=== PATIENT | male | born 1950 | race Hispanic/Latino ===

== ENCOUNTER 2018-07-31 22:07 | Inpatient (IN) | payer MEDICARE, OTHER ==
--- NOTE | 2018-07-31 22:30 | ED PDOC ---
Arrival/HPI - General Time Seen by Provider: 07/31/18 22:16 Historian: Patient - History of Present Illness Narrative History of Present Illness (Text): 07/31/18 22:26 68 year old male, whose past medical history includes hypertension, DVT, and PE, presents to the emergency department with dizziness, since 30 minutes prior. 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 Patient states he began feeling lightheadedness, with some chest pain and palpitations. Patient informs of an aggravating incident that happened earlier in the day, and thinks it may be associated. Patient denies any fevers, chills, shortness of breath, abdominal pain, nausea, vomiting, diarrhea, back pain, neck pain, urinary/bowel changes, or any other complaint. 07/31/18 23:56 Time/Duration: 1/2 hour Symptom Course: Unchanged Activities at Onset: Light Past Medical History - Provider Review Nursing Documentation Reviewed: Yes - Cardiac Hx Pacemaker: No - Pulmonary Hx Respiratory Disorders: No Hx Asthma: No Hx Bronchitis: No Hx Chronic Obstructive Pulmonary Disease (COPD): No Hx Emphysema: No Hx Lung Cancer: No Hx Pneumonia: No Hx Pulmonary Embolism: No Hx Respiratory Aspiration: No Hx Respiratory Tract Infection: No Hx Sleep Apnea: No Hx Tuberculosis: No - Neurological Hx Paralysis: No - Hematological/Oncological Hx Blood Transfusions: No Hx Blood Transfusion Reaction: No - Integumentary Hx Cellulitis: No - Musculoskeletal/Rheumatological Hx Musculoskeletal Disorders: Yes (BACK PROBLEMS) - Gastrointestinal Hx Gastrointestinal Disorders: No Hx Bowel Surgery: No Hx Colitis: No Hx Constipation: No Hx Crohn's Disease: No Hx Diarrhea: No Hx Diverticulitis: No Hx Esophageal Varices: No Hx Fatty Liver Disease: No Hx Gall Bladder Disease: No Hx Gastritis: No Hx Gastroesophageal Reflux: No Hx Gastrointestinal Ulcer: No Hx Hemorrhoids: No Hx Ileostomy: No Hx Irritable Bowel: No Hx Liver Failure: No Hx Nausea: No Hx Pancreatitis: No Hx Vomiting: No - Genitourinary/Gynecological Hx Cervical Cancer: No Hx Ovarian Cancer: No Hx Prostate Cancer: No Hx Reproductive Disorders: No Hx Sexually Transmitted Diseases: No Hx Uterine Cancer: No - Psychiatric Hx Emotional Abuse: No Hx Physical Abuse: No Hx Substance Use: No - Surgical History Hx Orthopedic Surgery: Yes (muscle repair to left knee) - Anesthesia Hx Anesthesia Reactions: No Hx Malignant Hyperthermia: No - Suicidal Assessment Feels Threatened In Home Enviroment: No Family/Social History - Physician Review Nursing Documentation Reviewed: Yes Family/Social History: No Known Family HX Smoking Status: quit 02/04 Hx Alcohol Use: Yes (SOCIAL) Hx Substance Use: No Hx Substance Use Treatment: No Allergies/Home Meds Allergies/Adverse Reactions: Allergies No Known Allergies Allergy (Verified 02/05/12 12:10) Home Medications: Home Meds Medication Instructions Recorded Confirmed Ibuprofen [Ibu] 600 mg PO PRN PRN 02/06/12 07/31/18 Atorvastatin [Lipitor] 40 mg PO DAILY 07/31/18 07/31/18 Hydrochlorothiazide [Microzide] 25 mg PO DAILY 07/31/18 07/31/18 Lisinopril [Zestril] 10 mg PO DAILY 07/31/18 07/31/18 Review of Systems - Physician Review All systems were reviewed & negative as marked: Yes - Review of Systems Constitutional: absent: Fevers, Night Sweats Respiratory: absent: SOB, Cough Cardiovascular: Chest Pain Gastrointestinal: absent: Abdominal Pain, Diarrhea, Nausea, Vomiting Genitourinary Male: absent: Urinary Output Changes Musculoskeletal: absent: Back Pain, Neck Pain Neurological: Headache, Dizziness Physical Exam Vital Signs Reviewed: Yes Vital Signs Temp Pulse Resp BP Pulse Ox 07/31/18 22:16 97.6 F 156 H 18 125/61 96 Temperature: Afebrile Blood Pressure: Normal Pulse: Tachycardic Respiratory Rate: Normal Appearance: Positive for: Well-Appearing, Non-Toxic, Comfortable Pain Distress: None Mental Status: Positive for: Alert and Oriented X 3 - Systems Exam Head: Present: Atraumatic, Normocephalic Pupils: Present: PERRL Extroacular Muscles: Present: EOMI Conjunctiva: Present: Normal Mouth: Present: Moist Mucous Membranes Neck: Present: Normal Range of Motion Respiratory/Chest: Present: Clear to Auscultation, Good Air Exchange. No: Respiratory Distress, Accessory Muscle Use Cardiovascular: Present: Irregular Rhythm (Irregularly irregular), Tachycardic. No: Murmurs Abdomen: No: Tenderness, Distention, Peritoneal Signs Back: Present: Normal Inspection Upper Extremity: Present: Normal Inspection. No: Cyanosis, Edema Lower Extremity: Present: Normal Inspection. No: Edema Neurological: Present: Speech Normal Skin: Present: Warm, Dry, Normal Color. No: Rashes Psychiatric: Present: Alert, Oriented x 3, Normal Insight, Normal Concentration Medical Decision Making ED Course and Treatment: 07/31/18 22:34 Impression: 68 year old male presents with dizziness and palpitations new onset afib Plan: -- EKG -- Labs -- Chest X-ray -- Cardizem -- Urinalysis -- Reassess and disposition Prior Visits: Notes and results from previous visits were reviewed. Progress Notes: EKG reviewed by me, shows: Atrial fibrillation @155 bpm Non-specific STT wave changes No previous comparison 07/31/18 23:14 Repeat EKG reviewed by me, shows: Atrial fibrillation @ 99bpm 07/31/18 23:56 case discusse elaine campos request dr clark consult. hr decreased. cardizem po dosed lovenox dosed. 07/31/18 23:57 cxr neg as read by me. - RAD Interpretation Radiology Orders: 07/31/18 22:25 CHEST PORTABLE [RAD] Stat - Scribe Statement The provider has reviewed the documentation as recorded by the Angela Callahan Provider Scribe Attestation: All medical record entries made by the Scribe were at my direction and personally dictated by me. I have reviewed the chart and agree that the record accurately reflects my personal performance of the history, physical exam, medical decision making, and the department course for this patient. I have also personally directed, reviewed, and agree with the discharge instructions and disposition. Disposition/Present on Arrival - Present on Arrival Any Indicators Present on Arrival: No History of DVT/PE: Yes History of Uncontrolled Diabetes: No Urinary Catheter: No History Surgical Site Infection Following: None - Disposition Have Diagnosis and Disposition been Completed?: Yes Diagnosis: Atrial fibrillation with RVR Disposition: HOSPITALIZED Disposition Time: 23:00 Condition: STABLE
[2018-07-31 23:01] LABS: PARTIAL THROMBOPLASTIN TIME 33.4 Seconds (25.1-36.5)
[2018-07-31 23:03] LABS: BASO # 0.03 K/mm3 (0.0-2.0); BASO % 0.3 % (0.0-3.0); EOS # 0.1 (0.0-0.7); EOS % 0.7 % (1.5-5.0); GRAN # 7.73 (1.4-6.5); GRAN % 72.1 % (50.0-68.0); HEMOGLOBIN 14.2 g/dL (14.0-18.0); LYMPH # 1.7 (1.2-3.4); LYMPH % 15.7 % (22.0-35.0); MEAN CELL VOLUME 84.3 fl (80.0-105.0); MEAN CORPUSCULAR HEMOGLOBIN 28.9 pg (25.0-35.0); MEAN CORPUSCULAR HGB CONC 34.3 g/dl (31.0-37.0); MONO # 1.2 (0.1-0.6); MONO % 11.2 % (1.0-6.0); RBC 4.91 10^6/uL (3.5-6.1); RED CELL DISTRIBUTION WIDTH 13.3 % (11.5-14.5); WHITE BLOOD COUNT 10.7 10^3/uL (4.5-11.0)
[2018-07-31 23:07] LABS: ALB/GLOB RATIO 1.4 (1.1-1.8); ALBUMIN 4.6 g/dL (3.0-4.8); ALT/SGPT 49 U/L (7-56); AST/SGOT 45 U/L (17-59); BLOOD UREA NITROGEN 20 mg/dL (7-21); CALCIUM 9.7 mg/dL (8.4-10.5); GFR NON-AFRICAN AMERICAN 55
[2018-07-31 23:10] LABS: INR 1.15; PROTHROMBIN TIME 13.1 SECONDS (9.4-12.5)
[2018-07-31] MEDS ORDERED: Enoxaparin 150 mg Syringe SC STA (23:10)
[2018-07-31 23:19] LABS: TROPONIN I 0.02 ng/mL
[2018-07-31 23:26] LABS: CK MB% 1.8 % (2.5-3.0); CK-MB 6.9 ng/mL (0.0-3.6)
[2018-08-01] MEDS ORDERED: diltiaZEM IVPB 100mg in NS 100 ML IV PRN (01:13)
--- NOTE | 2018-08-01 02:12 | CP.PCM.CON ---
<Marvin Mayen - Last Filed: 08/01/18 02:16> History of Present Illness - History of Present Illness History of Present Illness: 68 year old male, whose past medical history includes hypertension, DVT, and PE, presented to the emergency department with palpitations and lightheadedness which began an hour before arrival. PAtient found to be in afib. 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 Patient states he began feeling lightheadedness, with some chest pain and palpitations. Patient admits to smoking marijuana prior to the onset of symptoms. Patient denies any syncope. In addition, patient denies any fevers, chills, shortness of breath, abdominal pain, nausea, vomiting, diarrhea, back pain, neck pain, urinary/bowel changes, or any other complaints. PMH: HLD, HTN, scoliosis PSH: leg muscle repair on left leg 2011 Allergies: NKDA Social: admits to marijuana use occasionally, couple of beers on weekends, denies tobacco use Family Hx: Brother, 50 had a stroke Meds: As per [facility] PMD: Dr. Scott Review of Systems - Constitutional Constitutional: absent: Chills, Fatigue, Fever - Cardiovascular Cardiovascular: Irregular Heart Rhythm, Palpitations. absent: Chest Pain, Dyspnea - Respiratory Respiratory: absent: Cough, Dyspnea - Gastrointestinal Gastrointestinal: absent: Abdominal Pain, Nausea, Vomiting - Neurological Neurological: absent: Weakness - Endocrine Endocrine: absent: Excessive Sweating Past Patient History - Past Social History Smoking Status: quit 02/04 - CARDIAC Hx Pacemaker: No - PULMONARY Hx Respiratory Disorders: No Hx Asthma: No Hx Bronchitis: No Hx Chronic Obstructive Pulmonary Disease (COPD): No Hx Emphysema: No Hx Lung Cancer: No Hx Pneumonia: No Hx Pulmonary Embolism: No Hx Respiratory Aspiration: No Hx Respiratory Tract Infection: No Hx Sleep Apnea: No Hx Tuberculosis: No - NEUROLOGICAL Hx Paralysis: No - HEMATOLOGICAL/ONCOLOGICAL Hx Blood Transfusions: No Hx Blood Transfusion Reaction: No - INTEGUMENTARY Hx Cellulitis: No - MUSCULOSKELETAL/RHEUMATOLOGICAL Hx Musculoskeletal Disorders: Yes (BACK PROBLEMS) - GASTROINTESTINAL Hx Gastrointestinal Disorders: No Hx Bowel Surgery: No Hx Colitis: No Hx Constipation: No Hx Crohn's Disease: No Hx Diarrhea: No Hx Diverticulitis: No Hx Esophageal Varices: No Hx Fatty Liver Disease: No Hx Gall Bladder Disease: No Hx Gastritis: No Hx Gastroesophageal Reflux: No Hx Hemorrhoids: No Hx Ileostomy: No Hx Irritable Bowel: No Hx Liver Failure: No Hx Nausea: No Hx Pancreatitis: No Hx Vomiting: No - GENITOURINARY/GYNECOLOGICAL Hx Prostate Cancer: No Hx Reproductive Disorders: No Hx Sexually Transmitted Disorders: No - PSYCHIATRIC Hx Emotional Abuse: No Hx Physical Abuse: No Hx Substance Use: No - SURGICAL HISTORY Hx Orthopedic Surgery: Yes (muscle repair to left knee) - ANESTHESIA Hx Anesthesia Reactions: No Hx Malignant Hyperthermia: No Meds Allergies/Adverse Reactions: Allergies Allergy/AdvReac Type Severity Reaction Status Date / Time No Known Allergies Allergy Verified 02/05/12 12:10 - Medications Medications: Current Medications Atorvastatin Calcium (Lipitor) 40 mg PO DAILY WILFREDO Hydrochlorothiazide (Hydrodiuril) 25 mg PO DAILY WILFREDO diltiaZEM IVPB 100mg in NS (Cardizem 100mg In Ns) 100 mls @ 5 mls/hr IV .Q20H PRN; Protocol PRN Reason: TITRATE PER MD ORDER Last Admin: 08/01/18 01:30 Dose: 5 mg/hr, 5 mls/hr Lisinopril (Zestril) 10 mg PO DAILY WILFREDO Physical Exam - Constitutional Appears: Well, Non-toxic, No Acute Distress - Head Exam Head Exam: ATRAUMATIC, NORMAL INSPECTION, NORMOCEPHALIC - Eye Exam Eye Exam: EOMI, Normal appearance, PERRL Pupil Exam: NORMAL ACCOMODATION - ENT Exam ENT Exam: Mucous Membranes Moist, Normal Exam - Respiratory Exam Respiratory Exam: NORMAL BREATHING PATTERN - Cardiovascular Exam Cardiovascular Exam: Tachycardia, Irregular Rhythm Additional comments: afib - GI/Abdominal Exam GI & Abdominal Exam: Normal Bowel Sounds, Soft. absent: Tenderness - Extremities Exam Extremities exam: Positive for: normal inspection, pedal pulses present. Negative for: calf tenderness, pedal edema, tenderness - Neurological Exam Neurological exam: Alert, CN II-XII Intact, Oriented x3 Results - Vital Signs Recent Vital Signs: Last Vital Signs Temp 97.6 F 07/31/18 22:16 Pulse 108 H 08/01/18 00:14 Resp 17 08/01/18 00:14 BP 114/70 08/01/18 00:14 Pulse Ox 98 08/01/18 00:14 - Labs Result Diagrams: 07/31/18 22:41 07/31/18 22:41 Labs: Laboratory Results - last 24 hr 07/31/18 07/31/18 07/31/18 22:41 22:41 22:41 WBC 10.7 RBC 4.91 Hgb 14.2 Hct 41.4 L MCV 84.3 MCH 28.9 MCHC 34.3 RDW 13.3 Plt Count 250 MPV 10.0 Gran % 72.1 H Lymph % (Auto) 15.7 L Graham % (Auto) 11.2 H Eos % (Auto) 0.7 L Baso % (Auto) 0.3 Gran # 7.73 H Lymph # (Auto) 1.7 Graham # (Auto) 1.2 H Eos # (Auto) 0.1 Baso # (Auto) 0.03 PT 13.1 H INR 1.15 APTT 33.4 Sodium 135 Potassium 3.7 Chloride 99 Carbon Dioxide 25 Anion Gap 15 BUN 20 Creatinine 1.3 Est GFR ( Amer) > 60 Est GFR (Non-Af Amer) 55 Random Glucose 190 H Calcium 9.7 Magnesium 2.0 Total Bilirubin 0.8 AST 45 ALT 49 Alkaline Phosphatase 79 Lactate Dehydrogenase 548 Total Creatine Kinase 387 H CK-MB (CK-2) 6.9 H CK-MB (CK-2) % 1.8 L Troponin I 0.02 Total Protein 8.0 Albumin 4.6 Globulin 3.4 Albumin/Globulin Ratio 1.4 Assessment & Plan - Assessment and Plan (Free Text) Assessment: 68 year old male, whose past medical history includes hypertension, DVT, and PE, presented to the emergency department with palpitations and lightheadedness which began an hour before arrival. PAtient found to be in afib. Plan: Neuro -AAAOx3 -continue to monitor status -xanax prn for anxiety CV -EKG initially showed Afib with rate in the 150s -Patient given therapeutic lovenox -initial trop .02, will follow serial x2 -cardizem PO given in ED followed by bolus -cardizem drip -HR now in the 120s -monitor in telemetry -blood pressure stable -continue home antihypertensives -cardio consulted, Narendra, follow recs -statin -urine drug screen GI -HHD -protonix Endo -TSH/T4 pending -maintain euglycemia Respiratory -patient saturating well on room air -maintain oxygen saturation >92% Patient is comfortable, HR in 120s controlled by Cardizem, initial trop negative. Will monitor patient on telemetry, not a candidate for ICU currently. <Anatoliy Kelly - Last Filed: 08/01/18 03:27> Meds - Medications Medications: Current Medications Alprazolam (Xanax) 0.25 mg PO Q6H PRN; Protocol PRN Reason: Anxiety Stop: 08/08/18 02:16 Atorvastatin Calcium (Lipitor) 40 mg PO DAILY WILFREDO Hydrochlorothiazide (Hydrodiuril) 25 mg PO DAILY WILFREDO diltiaZEM IVPB 100mg in NS (Cardizem 100mg In Ns) 100 mls @ 5 mls/hr IV .Q20H PRN; Protocol PRN Reason: TITRATE PER MD ORDER Last Admin: 08/01/18 01:30 Dose: 5 mg/hr, 5 mls/hr Sodium Chloride (Sodium Chloride 0.9%) 1,000 mls @ 100 mls/hr IV .Q10H WILFREDO Stop: 08/01/18 12:59 Lisinopril (Zestril) 10 mg PO DAILY [facility] Results - Vital Signs Recent Vital Signs: Last Vital Signs Temp 97.6 F 07/31/18 22:16 Pulse 118 H 08/01/18 02:11 Resp 17 08/01/18 00:14 BP 112/67 08/01/18 02:11 Pulse Ox 98 08/01/18 00:14 - Labs Result Diagrams: 07/31/18 22:41 07/31/18 22:41 Labs: Laboratory Results - last 24 hr 07/31/18 07/31/18 07/31/18 22:41 22:41 22:41 WBC 10.7 RBC 4.91 Hgb 14.2 Hct 41.4 L MCV 84.3 MCH 28.9 MCHC 34.3 RDW 13.3 Plt Count 250 MPV 10.0 Gran % 72.1 H Lymph % (Auto) 15.7 L Graham % (Auto) 11.2 H Eos % (Auto) 0.7 L Baso % (Auto) 0.3 Gran # 7.73 H Lymph # (Auto) 1.7 Graham # (Auto) 1.2 H Eos # (Auto) 0.1 Baso # (Auto) 0.03 PT 13.1 H INR 1.15 APTT 33.4 Sodium 135 Potassium 3.7 Chloride 99 Carbon Dioxide 25 Anion Gap 15 BUN 20 Creatinine 1.3 Est GFR ( Amer) > 60 Est GFR (Non-Af Amer) 55 Random Glucose 190 H Calcium 9.7 Magnesium 2.0 Total Bilirubin 0.8 AST 45 ALT 49 Alkaline Phosphatase 79 Lactate Dehydrogenase 548 Total Creatine Kinase 387 H CK-MB (CK-2) 6.9 H CK-MB (CK-2) % 1.8 L Troponin I 0.02 Total Protein 8.0 Albumin 4.6 Globulin 3.4 Albumin/Globulin Ratio 1.4 Triglycerides Cholesterol LDL Cholesterol Direct HDL Cholesterol Thyroxine (T4) 07/31/18 07/31/18 22:41 22:41 WBC RBC Hgb Hct MCV MCH MCHC RDW Plt Count MPV Gran % Lymph % (Auto) Graham % (Auto) Eos % (Auto) Baso % (Auto) Gran # Lymph # (Auto) Graham # (Auto) Eos # (Auto) Baso # (Auto) PT INR APTT Sodium Potassium Chloride Carbon Dioxide Anion Gap BUN Creatinine Est GFR ( Amer) Est GFR (Non-Af Amer) Random Glucose Calcium Magnesium Total Bilirubin AST ALT Alkaline Phosphatase Lactate Dehydrogenase Total Creatine Kinase CK-MB (CK-2) CK-MB (CK-2) % Troponin I Total Protein Albumin Globulin Albumin/Globulin Ratio Triglycerides 105 Cholesterol 165 LDL Cholesterol Direct 103 HDL Cholesterol 44 Thyroxine (T4) 9.3 Attending/Attestation - Attestation I have personally seen and examined this patient.: Yes I have fully participated in the care of the patient.: Yes I have reviewed all pertinent clinical information: Yes Notes (Text): 08/01/18 03:26 Patient was seen when he was in bed # 8 in the ER. Agree with consult note.
[2018-08-01 02:57] LABS: HDL CHOLESTEROL 44 mg/dL (29-60)
[2018-08-01] MEDS ORDERED: Sodium Chloride 0.9% 1,000 ML IV SCH (03:00)
[2018-08-01 03:09] LABS: LDL CHOLESTEROL 103 mg/dL (0-129)
[2018-08-01 03:15] LABS: T4 9.3 ug/dL (5.5-11.0)
[2018-08-01] MEDS ORDERED: Iohexol 350 MG/100 ML VIAL ONE (04:21)
[2018-08-01 07:24] LABS: BASO # 0.03 K/mm3 (0.0-2.0); BASO % 0.3 % (0.0-3.0); EOS # 0.1 (0.0-0.7); EOS % 1.3 % (1.5-5.0); GRAN # 5.09 (1.4-6.5); GRAN % 58.6 % (50.0-68.0); LYMPH # 2.6 (1.2-3.4); LYMPH % 29.5 % (22.0-35.0); MEAN CELL VOLUME 84.5 fl (80.0-105.0); MEAN CORPUSCULAR HEMOGLOBIN 28.9 pg (25.0-35.0); MEAN CORPUSCULAR HGB CONC 34.2 g/dl (31.0-37.0); MEAN PLATELET VOLUME 10.1 fl (7.0-11.0); MONO # 0.9 (0.1-0.6); MONO % 10.3 % (1.0-6.0); RBC 4.84 10^6/uL (3.5-6.1); RED CELL DISTRIBUTION WIDTH 13.3 % (11.5-14.5); WHITE BLOOD COUNT 8.7 10^3/uL (4.5-11.0)
[2018-08-01 07:42] LABS: ALB/GLOB RATIO 1.3 (1.1-1.8); ALBUMIN 4.2 g/dL (3.0-4.8); ALT/SGPT 45 U/L (7-56); AST/SGOT 37 U/L (17-59); BLOOD UREA NITROGEN 19 mg/dL (7-21); CALCIUM 9.3 mg/dL (8.4-10.5); GFR NON-AFRICAN AMERICAN > 60
[2018-08-01 07:45] LABS: TROPONIN I 0.02 ng/mL
--- NOTE | 2018-08-01 08:53 | CT ---
Date of service: 08/01/2018 PROCEDURE: CT HEAD WITH AND WITHOUT CONTRAST HISTORY: Dizziness for half hour. COMPARISON: None available. TECHNIQUE: Axial computed tomography images were obtained through the head/brain with and without intravenous contrast enhancement. Contrast dose: Radiation dose: Total exam DLP = 2534.93 mGy-cm. This CT exam was performed using one or more of the following dose reduction techniques: Automated exposure control, adjustment of the mA and/or kV according to patient size, and/or use of iterative reconstruction technique. FINDINGS: HEMORRHAGE: No intracranial hemorrhage. BRAIN: No mass, mass effect or edema. No abnormal intracranial enhancement. No atrophy or chronic microvascular ischemic changes. VENTRICLES: Unremarkable. No hydrocephalus. CALVARIUM: Unremarkable. SINUSES: Unremarkable as visualized. No significant inflammatory changes. MASTOID AIR CELLS: Unremarkable as visualized. No mastoid effusion. OTHER FINDINGS: None. IMPRESSION: Normal pre and post contrast enhanced CT of the head.
--- NOTE | 2018-08-01 09:03 | RAD ---
Date of service: 07/31/2018 HISTORY: palpitations COMPARISON: No prior. FINDINGS: LUNGS: No active pulmonary disease. PLEURA: No significant pleural effusion identified, no pneumothorax apparent. CARDIOVASCULAR: No aortic atherosclerotic calcification present. Normal cardiac size. No pulmonary vascular congestion. OSSEOUS STRUCTURES: No significant abnormalities. VISUALIZED UPPER ABDOMEN: Normal. OTHER FINDINGS: None. IMPRESSION: No active disease.
--- NOTE | 2018-08-01 12:43 | CON ---
DATE: 08/01/2018 SERVICE: Cardiology. REASON FOR CONSULTATION: Atrial fibrillation, rapid ventricular rate, new onset. HISTORY OF PRESENT ILLNESS: This is a 68-year-old male with past medical history significant for hypertension, hyperlipidemia, is a [place] who plays [employer], was in a lot of stress yesterday because some transaction from his bank account and he has to go back and forth multiple times to the bank and was in a lot of stress. 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 So, the patient was in rehearsal, so stopped this, and went home, and later on the friend dropped off to the ER. Though he denies any chest pain, but feels a funny sensation in the chest and found to be in atrial fibrillation with rapid ventricular rate. The patient started on IV Cardizem and now rate is 100, feels much better. Denies any chest pain, denies any shortness of breath, denies any palpitation, denies any prior episode of this condition. PAST MEDICAL HISTORY: Significant for hypertension, obesity, hyperlipidemia. PAST SURGICAL HISTORY: Significant for left knee surgery in 2011 where the ligament was torn. SOCIAL HISTORY: Quit smoking many years ago. Denies any history of alcohol abuse, but says that he drinks four cans of beer every Saturday when he hangs with a friend. FAMILY HISTORY: Noncontributory. CURRENT MEDICATIONS: The patient is taking lisinopril 10 mg daily, hydrochlorothiazide 25 mg daily, atorvastatin 40 mg daily, ibuprofen as needed. ALLERGIES: NO KNOWN DRUG ALLERGY. PHYSICAL EXAMINATION VITAL SIGNS: Height of the patient 5 feet 8 inches, weight of the patient 220 pounds, body mass index 33.5 kg/m2. Rest of the vitals; temperature afebrile, heart rate 96, blood pressure 142/52. HEENT: PERRLA intact. NECK: Supple. No carotid bruit or thyromegaly. CHEST: Clear to auscultation. HEART: S1, S2, regular. ABDOMEN: Soft. EXTREMITIES: Clubbing and cyanosis, negative. DIAGNOSTIC DATA: EKG shows atrial fibrillation, atrial flutter when he came in with a heart rate of 145, now the patient is in atrial fibrillation, heart rate of 112. LABORATORY DATA: Blood workup WBC 8.7, hemoglobin 14, hematocrit 40.9, platelet count 249. Chemistry shows sodium 130, potassium 3.8, chloride 101, carbon dioxide 25, anion gap of 14, BUN of 19, creatinine 1.1, random sugar of 176. Troponins remains flat, 0.02. TSH 1.93. Triglyceride 105, cholesterol 165, LDL 106, HDL 44. SGPT, SGOT within the normal limit. AST 37, ALT 45. IMPRESSION: A 68-year-old morbidly obese male with past medical history of hypertension, admitted with new onset of atrial fibrillation, currently on Cardizem. RECOMMENDATIONS: We will continue Lovenox. We will mold changer to Eliquis 5 by mouth two times a day, start Cardizem and will start amiodarone as well. Get echo to assess LV function. Heart rate is controlled. Depending upon the echo, further recommendation versus JESSICA as outpatient with a stress test. JESSICA cardioversion as outpatient considered. Discussed with the patient. We will hold lisinopril, so we can push Cardizem for control of the heart rate and therefore the blood pressure. We will follow with you. Thank you Dr. Gusman for providing us the opportunity in taking care of the patient, Maco Larsen. Sofia Mackey MD
--- NOTE | 2018-08-01 13:43 | US ---
PROCEDURE: Bilateral carotid artery duplex ultrasound HISTORY: Carotid stenosis PHYSICIAN(S): Benito Scott MD. TECHNIQUE: Duplex sonography and color-flow Doppler were used to evaluate the carotid bifurcations and limited segments of the vertebral arteries bilaterally. FINDINGS: There is mild to moderate focal smooth heterogeneous plaque noted at the carotid bifurcations bilaterally. The peak systolic velocity in the proximal right internal carotid artery is 69 cm/sec. This corresponds to a 20 to 39% proximal right ICA stenosis. Normal systolic velocities are noted in the proximal right external carotid artery. There is antegrade flow in the right vertebral artery. The peak systolic velocity in the proximal left internal carotid artery is 59 cm/sec. This corresponds to a 20 to 39% proximal left ICA stenosis. Normal systolic velocities are noted in the proximal left external carotid artery. There is antegrade flow in the left vertebral artery. IMPRESSION: 1. Bilateral 20-39% proximal ICA stenoses. 2. Antegrade flow in both vertebral arteries.
--- NOTE | 2018-08-01 16:21 | CARD ---
APPROVED REPORT Date of service: 07/31/2018 EKG Measurement Heart [id number] <Conclusion> Atrial fibrillation Nonspecific ST abnormality, probably digitalis effect Abnormal ECG
--- NOTE | 2018-08-01 16:21 | CARD ---
APPROVED REPORT Date of service: 07/31/2018 EKG Measurement Heart [id number] <Conclusion> Atrial fibrillation with rapid ventricular response ST & T wave abnormality, consider lateral ischemia or digitalis effect Abnormal ECG
[2018-08-01 16:48] VITALS: BMI 38.0
[2018-08-01] MEDS ORDERED: Enoxaparin 100 mg Syringe SC SCH ×2 (18:00→20:18)
--- NOTE | 2018-08-02 00:01 | HP ---
DATE OF EXAM: 08/01/2018 HISTORY OF PRESENT ILLNESS: Mr. Larsen is a 68-year-old male presented to the ED with lightheadedness and dizziness 30 minutes prior to arrival to the ED. He was found to have new onset atrial fibrillation with rapid heart rate, started on Cardizem drip. He has a history of DVT in left lower extremity and pulmonary embolism in 2011. CT chest reviewed from 2012. He had bilateral pulmonary embolism. He stated that he had been smoking marijuana yesterday. Smoked few times. He occasionally smokes for past many years. He also combines marijuana with alcohol occasionally. 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 PAST MEDICAL HISTORY: Pulmonary embolism, backaches. PAST SURGICAL HISTORY: Left knee muscle repair. PERSONAL HISTORY: He smokes marijuana regularly. Drinks few beers a day. FAMILY HISTORY: Noncontributory. SOCIAL HISTORY: Lives at home. ALLERGIES NO KNOWN DRUG ALLERGIES. REVIEW OF SYSTEMS: As per HPI. Rest of 12-point review of systems reviewed negative. PHYSICAL EXAMINATION GENERAL: Comfortable in bed, in no acute distress. VITAL SIGNS: Temperature 97.6, heart rate 156 per minute on admission, current heart rate is 98 per minute,respiratory rate 18 per minute, blood pressure 125/60, heart rate is 96 per minute. HEENT: No pallor. NECK: No lymphadenopathy. CARDIOVASCULAR: Irregularly irregular heart rate. No murmur or gallop. LUNGS: Clear to auscultation. No added sounds. EXTREMITIES: Lower extremities, no edema. SKIN: No petechia. No rash. LABORATORY DATA: White count 8.7, hemoglobin 14, hematocrit 40.9, platelet count 249, creatinine 1.8, sodium 136, potassium 3.8 and total bilirubin 0.8. TSH 1.3. HOME MEDICATIONS: Lipitor 40 mg daily, hydrochlorothiazide 25 mg daily, lisinopril 10 mg daily. ASSESSMENT: 1. New onset atrial fibrillation with rapid heart rate. 2. Hypercoagulable state. 3. History of bilateral pulmonary embolism, history of deep venous thrombosis left lower extremity in 2011. 4. History of marijuana use. PLAN: He will be admitted to tele monitoring. Cardiology consultation Dr. Mackey requested, received 1 dose of Lovenox 125 mg in the ED. We will continue Lovenox 100 mg p.o. b.i.d. After 24 hours, we will start Coumadin 10 mg daily. Started on Cardizem drip in the ED, continue that, Xanax 0.25 every 6 hours. p.r.n. for anxiety. Cardiology consult Dr. Mackey appreciated. Amiodarone started 400 mg p.o. t.i.d. Renal functions are within normal limits. We will do the CT angio tomorrow to rule out recurrent pulmonary embolism. Labs ordered for tomorrow. Vane Gusman MD
[2018-08-02 08:35] LABS: BASO # 0.04 K/mm3 (0.0-2.0); BASO % 0.5 % (0.0-3.0); EOS # 0.2 (0.0-0.7); EOS % 2.1 % (1.5-5.0); GRAN # 4.37 (1.4-6.5); GRAN % 58.6 % (50.0-68.0); HEMOGLOBIN 13.4 g/dL (14.0-18.0); LYMPH # 2.1 (1.2-3.4); LYMPH % 27.7 % (22.0-35.0); MEAN CELL VOLUME 85.3 fl (80.0-105.0); MEAN PLATELET VOLUME 10.7 fl (7.0-11.0); MONO # 0.8 (0.1-0.6); MONO % 11.1 % (1.0-6.0); RBC 4.62 10^6/uL (3.5-6.1); RED CELL DISTRIBUTION WIDTH 13.3 % (11.5-14.5); WHITE BLOOD COUNT 7.5 10^3/uL (4.5-11.0)
[2018-08-02 09:18] LABS: ALB/GLOB RATIO 1.2 (1.1-1.8); ALT/SGPT 41 U/L (7-56); AST/SGOT 41 U/L (17-59); BLOOD UREA NITROGEN 15 mg/dL (7-21); CALCIUM 9.1 mg/dL (8.4-10.5); GFR NON-AFRICAN AMERICAN > 60
--- NOTE | 2018-08-02 09:46 | CARD ---
APPROVED REPORT Date of service: 08/02/2018 EKG Measurement Heart [id number] <Conclusion> Sinus rhythm with 1st degree AV block Low voltage QRS Nonspecific ST abnormality Abnormal ECG
[2018-08-02] MEDS ORDERED: Iohexol 350 MG/100 ML VIAL ONE (10:00)
--- NOTE | 2018-08-02 10:53 | CT ---
Date of service: 08/02/2018 PROCEDURE: CT Chest with contrast (Pulmonary Angiogram) HISTORY: r/o PE COMPARISON: None available. TECHNIQUE: Axial computed tomography images were obtained of the chest in the pulmonary arterial phase of enhancement. Coronal and sagittal reformatted images were created and reviewed. Intravenous contrast dose: 100 cc of Omni 350 Radiation dose: Total exam DLP = 527.84 mGy-cm. This CT exam was performed using one or more of the following dose reduction techniques: Automated exposure control, adjustment of the mA and/or kV according to patient size, and/or use of iterative reconstruction technique. FINDINGS: PULMONARY ARTERIES: Unremarkable. No pulmonary embolism. AORTA: No acute findings. No thoracic aortic aneurysm. Aortic and coronary artery calcifications LUNGS: Unremarkable. No nodule, mass or pulmonary consolidation. PLEURAL SPACES: Unremarkable. No effusion or pneumothorax. HEART: Unremarkable. No cardiomegaly. No significant pericardial effusion. LYMPH NODES: No lymphadenopathy. BONES, CHEST WALL: Unremarkable. No fracture or destructive lesion OTHER FINDINGS: Unremarkable. IMPRESSION: Unremarkable CT pulmonary angiogram. No pulmonary embolus.
--- NOTE | 2018-08-02 11:41 | CP.PCM.PN ---
Subjective - Date & Time of Evaluation Date of Evaluation: 08/02/18 Time of Evaluation: 06:30 - Subjective Subjective: Awake, no distress Reason for consultation and follow up: Cardiac evaluation of new onset atrial fibrillation, rapid ventricular rate Seen and examined by me and Dr. Irizarry Objective - Vital Signs/Intake and Output Vital Signs (last 24 hours): Temp Pulse Resp BP Pulse Ox 98.3 F 72 20 137/67 97 08/02/18 06:00 08/02/18 10:51 08/02/18 06:00 08/02/18 10:51 08/02/18 06:00 Intake and Output: 08/02/18 08/02/18 06:59 18:59 Intake Total 120 Balance 120 - Medications Medications: Current Medications Alprazolam (Xanax) 0.25 mg PO Q6H PRN; Protocol PRN Reason: Anxiety Stop: 08/08/18 02:16 Amiodarone HCl (Cordarone) 200 mg PO DAILY [facility] Apixaban (Eliquis) 10 mg PO BID [facility]; Protocol Atorvastatin Calcium (Lipitor) 40 mg PO DAILY [facility] Last Admin: 08/02/18 10:52 Dose: 40 mg Diltiazem HCl (Cardizem) 60 mg PO TID [facility] Last Admin: 08/02/18 10:51 Dose: 60 mg Enoxaparin Sodium (Lovenox) 100 mg SC 0600,1800 [facility]; Protocol Last Admin: 08/02/18 05:24 Dose: 100 mg Hydrochlorothiazide (Hydrodiuril) 25 mg PO DAILY [facility] Last Admin: 08/02/18 10:52 Dose: 25 mg Lisinopril (Zestril) 10 mg PO DAILY [facility] Warfarin Sodium (Coumadin) 10 mg PO DAILY [facility]; Protocol Last Admin: 08/01/18 18:35 Dose: 10 mg - Labs Labs: 08/02/18 08:15 08/02/18 08:15 PT 13.1 SECONDS (9.4-12.5) H 07/31/18 22:41 INR 1.15 07/31/18 22:41 APTT 33.4 Seconds (25.1-36.5) 07/31/18 22:41 - Constitutional Appears: Non-toxic, No Acute Distress - Head Exam Head Exam: NORMAL INSPECTION, NORMOCEPHALIC - Eye Exam Eye Exam: Normal appearance Pupil Exam: NORMAL ACCOMODATION - ENT Exam ENT Exam: Mucous Membranes Moist, Normal Exam - Respiratory Exam Respiratory Exam: Clear to Ausculation Bilateral, NORMAL BREATHING PATTERN - Cardiovascular Exam Cardiovascular Exam: REGULAR RHYTHM, +S1, +S2 Additional comments: Telemetry NSR with 1st degree block - GI/Abdominal Exam GI & Abdominal Exam: Soft, Normal Bowel Sounds - Extremities Exam Extremities Exam: Full ROM, Normal Capillary Refill - Neurological Exam Neurological Exam: Alert, Awake, Oriented x3 - Psychiatric Exam Psychiatric exam: Normal Affect, Normal Mood - Skin Skin Exam: Dry, Normal Color, Warm Assessment and Plan - Assessment and Plan (Free Text) Assessment: A 68 year old male who came in to the ER due to funny feeling on chest while playing waldron. 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 In ER, EKG showed rapid atrial fibrillation. IV Cardizem was given, heart rate was controlled. History of hypoertension, obesity,hyperlipidemia, former smoker and left knee surgery for torn ligament 2011. Heart rate controlled now.For Echo today to evaluate LV function.. CT of chest-unremarkable, no embolism. Plan: For echo today Denies chest pain, no distress Heart rate controlled, NSR with 1st degree block at 60-70's/min Blood pressure controlled On Cordarone 200 mg daily,Eliquis 10 mg BID,Lipitor 40 mg daily, Cardizem 60 mg TID, Lovenox 100 mg BID, Hydrodiuril 25 mg daily Coumadin 10 mg daily Continue current medications Continue current treatment Will follow up Plan and treatment discussed with Dr. Irizarry
--- NOTE | 2018-08-02 12:59 | PN ---
DATE: 08/02/2018 SUBJECTIVE: He is comfortable in bed, in no acute distress. He converted to his normal sinus rhythm overnight. Heart rate is well controlled with current medications. He is currently on amiodarone. CT chest with angio protocol was ordered because of the history of PE in 2011. CT angio is negative for pulmonary embolism. No events overnight. No chest pain. No shortness of breath. REVIEW OF SYSTEMS: As per HPI. Rest of 12-point review of systems is reviewed negative. PHYSICAL EXAMINATION: GENERAL: Comfortable in bed, in no acute distress. VITAL SIGNS: Temperature 98.8, heart rate is 86 per minute, blood pressure 120/70, and respiratory rate 18 per minute. HEENT: No pallor. CHEST: Air entry present and equal bilaterally. No added sounds. CARDIOVASCULAR: Normal sinus rhythm. S1 and S2 normal. No murmur. No gallop. ABDOMEN: Obese, soft, nontender. EXTREMITIES: No edema. SKIN: No pallor. No petechiae. SPINE: Nontender. LABORATORY DATA: White count 7.5, hemoglobin 13.4, hematocrit 39.9, platelets 229. Sodium 135, potassium 3.6, creatinine 0.9. negative. MEDICATIONS: Xanax 0.25 mg every 6 hours p.r.n., amiodarone 200 mg p.o. daily, Lovenox, hydrochlorothiazide 25 mg daily, lisinopril 10 mg daily, Coumadin 10 mg daily. ASSESSMENT: 1. History of pulmonary embolism and deep vein thrombosis of left leg. 2. Hypercoagulable state. 3. New onset atrial fibrillation, converted to sinus rhythm. 4. History of marijuana use. PLAN: He converted to sinus rhythm. He will need anticoagulation for four to [address] chest negative for pulmonary embolism. We will consider Eliquis 10 mg p.o. b.i.d. for seven days and then 5 mg p.o. b.i.d. Evaluated by Dr. Makcey and Dr. Irizarry of Cardiology. Echocardiogram done today, results awaited. We will continue to monitor tele. If he remains stable, possible discharge tomorrow. Hypercoagulable workup will be done in the office to evaluate underlying etiology if any. Discussed at length with the patient. Discussed with the staff nurse. Discussed with Dr. Irizarry. Vane Gusman MD [facility] # [id number] [place]
--- NOTE | 2018-08-02 21:52 | CARD ---
APPROVED REPORT Date of service: 08/02/2018 EXAM: Two-dimensional and M-mode echocardiogram with Doppler and color Doppler. 2D DIMENSIONS Left Atrium (2D)4.7 (1.6-4.0cm)IVSd1.2 (0.7-1.1cm) Aortic Root (2D)3.2 (2.0-3.7cm)LVDd4.9 (3.9-5.9cm) PWd1.1 (0.7-1.1cm)LVDs3.0 (2.5-4.0cm) FS (%) 39.6 %LVEF (%)70.0 (>50%) M-Mode DIMENSIONS Aortic Cusp Exc.1.70 (1.5-2.0cm) Mitral Valve MV E Xubxisyq04.9cm/sMV A Qilnfllr02.7cm/sE/A ratio1.3 TDI Lateral E' Peak V8.38cm/sMedial E' Peak V5.26cm/sE/Lateral E'11.6 E/Medial E'18.4 Pulmonary Valve PV Peak Zabuprui747.0cm/sPV Peak Grad.5mmHg LEFT VENTRICLE The left ventricle is normal size. There is borderline concentric left ventricular hypertrophy. The left ventricular function is normal.EF-65-70% There is normal LV segmental wall motion. The left ventricular diastolic function is normal. No left ventricle thrombus noted on this study. There is no ventricular septal defect visualized. There is no left ventricular aneurysm. There is no mass noted in the left ventricle. RIGHT VENTRICLE The right ventricle is normal size. There is normal right ventricular wall thickness. The right ventricular systolic function is normal. ATRIA The left atrium is mildly dilated. The right atrium size is normal. The interatrial septum is intact with no evidence for an atrial septal defect. AORTIC VALVE The aortic valve is mildly to moderately sclerotic. There is trace aortic regurgitation. There is no aortic valvular stenosis. There is no aortic valvular vegetation. MITRAL VALVE The mitral valve is thickened but opens well. Mitral regurgitation is trace. There is no mitral valve stenosis. Redundant elongated chordae are noted. TRICUSPID VALVE The tricuspid valve leaflets are thickened , but open well. There is trace tricuspid regurgitation. There is no tricuspid valve stenosis. There is no tricuspid valve prolapse or vegetation. PULMONIC VALVE The pulmonary valve is normal in structure. There is no pulmonic valvular regurgitation. There is no pulmonic valvular stenosis. GREAT VESSELS The aortic root is normal in size. The ascending aorta is normal in size. The pulmonary artery is normal. The IVC is normal in size and collapses >50% with inspiration. PERICARDIAL EFFUSION There is no pleural effusion. There is a trace pericardial effusion. <Conclusion> The left ventricle is normal size. There is borderline concentric left ventricular hypertrophy. The left ventricular function is normal.EF-65-70% There is trace aortic regurgitation. Mitral regurgitation is trace. There is trace tricuspid regurgitation. The IVC is normal in size and collapses >50% with inspiration. Redundant elongated chordae are noted. There is a trace pericardial effusion. No vegetation or thrombus noted.
[2018-08-03 06:35] VITALS: O2SAT 97
--- NOTE | 2018-08-03 08:16 | CP.PCM.PN ---
Subjective - Date & Time of Evaluation Date of Evaluation: 08/03/18 Time of Evaluation: 06:20 - Subjective Subjective: Awake, no distress Reason for consultation and follow up: Cardiac evaluation of new onset atrial fibrillation, rapid ventricular rate Seen and examined by me and Dr. Irizarry Objective - Vital Signs/Intake and Output Vital Signs (last 24 hours): Temp Pulse Resp BP Pulse Ox 98.4 F 67 20 114/65 97 08/03/18 06:00 08/03/18 06:00 08/03/18 06:00 08/03/18 06:00 08/03/18 06:00 Intake and Output: 08/03/18 08/03/18 06:59 18:59 Intake Total 780 Output Total 300 Balance 480 - Medications Medications: Current Medications Alprazolam (Xanax) 0.25 mg PO Q6H PRN; Protocol PRN Reason: Anxiety Stop: 08/08/18 02:16 Amiodarone HCl (Cordarone) 200 mg PO DAILY [facility] Apixaban (Eliquis) 10 mg PO BID [facility]; Protocol Last Admin: 08/02/18 18:41 Dose: 10 mg Atorvastatin Calcium (Lipitor) 40 mg PO DAILY [facility] Last Admin: 08/02/18 10:52 Dose: 40 mg Diltiazem HCl (Cardizem) 60 mg PO TID [facility] Last Admin: 08/02/18 18:40 Dose: 60 mg Hydrochlorothiazide (Hydrodiuril) 25 mg PO DAILY [facility] Last Admin: 08/02/18 10:52 Dose: 25 mg Lisinopril (Zestril) 10 mg PO DAILY [facility] Tamsulosin HCl (Flomax) 0.4 mg PO DAILY [facility] Last Admin: 08/02/18 13:04 Dose: 0.4 mg - Labs Labs: 08/02/18 08:15 08/02/18 08:15 PT 13.1 SECONDS (9.4-12.5) H 07/31/18 22:41 INR 1.15 07/31/18 22:41 APTT 33.4 Seconds (25.1-36.5) 07/31/18 22:41 - Constitutional Appears: Non-toxic, No Acute Distress - Head Exam Head Exam: NORMAL INSPECTION, NORMOCEPHALIC - Eye Exam Eye Exam: Normal appearance Pupil Exam: NORMAL ACCOMODATION - ENT Exam ENT Exam: Mucous Membranes Moist, Normal Exam - Neck Exam Neck Exam: Full ROM, Normal Inspection - Respiratory Exam Respiratory Exam: Clear to Ausculation Bilateral, NORMAL BREATHING PATTERN - Cardiovascular Exam Cardiovascular Exam: REGULAR RHYTHM, +S1, +S2 Additional comments: Telemetry NSR 60-70's - GI/Abdominal Exam GI & Abdominal Exam: Soft, Normal Bowel Sounds - Extremities Exam Extremities Exam: Full ROM, Normal Capillary Refill - Neurological Exam Neurological Exam: Alert, Awake, Oriented x3 - Psychiatric Exam Psychiatric exam: Normal Affect, Normal Mood - Skin Skin Exam: Dry, Normal Color, Warm Assessment and Plan - Assessment and Plan (Free Text) Assessment: A 68 year old male who came in to the ER due to funny feeling on chest while playing waldron. 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 In ER, EKG showed rapid atrial fibrillation. IV Cardizem was given, heart rate was controlled. History of hypoertension, obesity,hyperlipidemia, former smoker and left knee surgery for torn ligament 2011. Heart rate controlled now.For Echo today to evaluate LV function.. CT of chest-unremarkable, no embolism. Echo done-Echo done- LVEF 65%,Trace AR/MR/TR,redundant elongated chordae notes, trace pericardial effusion,no vegetation or thrombus. Clinically stable. Plan: Echo done- LVEF 65%,Trace AR/MR/TR redundant elongated chordae notes, trace pericardial effusion,no vegetation or thrombus Denies chest pain, no distress Heart rate controlled, NSR 60-70's/min Blood pressure controlled On Cordarone 200 mg daily,Eliquis 10 mg BID,for 7 days then decreased to 5 mg BID, Lipitor 40 mg daily, Cardizem 60 mg TID, Lovenox 100 mg BID, Hydrodiuril 25 mg daily Continue current medications Continue current treatment Will follow up Plan and treatment discussed with Dr. Irizarry
--- NOTE | 2018-08-03 11:22 | DS ---
DISCHARGE DIAGNOSES: 1. New-onset atrial fibrillation converted to sinus rhythm. 2. History of pulmonary embolism. CT chest angiography protocol negative for pulmonary embolism. 3. Hypercoagulable state. 4. History of marijuana use. HOSPITAL COURSE: The patient was admitted with severe chest pain, lightheadedness, found to have new-onset atrial fibrillation. Cardiac enzymes were negative. Evaluated by Cardiology, Dr. Mackey. He converted to sinus rhythm during hospitalization, treated with amiodarone and beta-blockers. CT chest with PE protocol negative for pulmonary embolism. He has a history of DVT of left lower extremity. He had hypercoagulable workup, currently stable, being discharged to home in stable condition. PHYSICAL EXAMINATION ON DISCHARGE: GENERAL: Comfortable in bed, in no acute distress. VITAL SIGNS: Temperature 97.8, heart rate is 85 per minute, blood pressure 120/60, respiratory rate 18 per minute. HEENT: No pallor. CHEST: Air entry present and equal bilaterally. No added sound. CARDIOVASCULAR: S1, S2 normal. No murmur. No gallop. ABDOMEN: Soft, nontender. No hepatosplenomegaly. SKIN: No petechiae. No rash. SPINE: Nontender. DISPOSITION: Discharged to home. CONDITION ON DISCHARGE: Stable. DIET: Heart-healthy diet. FOLLOWUP: Follow up with Dr. Mackey in one week. Cardiac stress test will be done as an outpatient. Follow up with Dr. Gusman on August 07 at 2 p.m. for hypercoagulable workup and anticoagulation management. DISCHARGE MEDICATIONS: Amiodarone 200 mg by mouth daily, Eliquis 10 mg by mouth two times a day for seven days and then 5 mg by mouth two times a day, Xanax 0.5 mg every six hours as needed for anxiety, lisinopril 10 mg daily, Flomax 0.4 mg daily, Lipitor 40 mg daily, Cardizem 60 mg by mouth three times a day, hydrochlorothiazide 25 mg by mouth daily. Time spent in preparing discharge, coordinating care, 60 minutes. Discussed with the patient. Discussed with the staff nurse. Vane Gusman MD
[2018-08-03] MEDS ORDERED: Pneumococcal 23-Valent Vaccine IM ONE (12:02)
[2018-08-03 12:33] VITALS: BP 142/79; PULSE 75; RESP 18; TEMP 98.1
--- NOTE | 2018-08-04 08:51 | PN ---
DATE: 08/03/2018 LOCATION: The patient is in room 263, bed 2. The progress note has already been written by Austin Reagan APN. This is an addendum. SUBJECTIVE: The patient was admitted with atrial fibrillation with a rapid rate, which converted to sinus rhythm with medication. The patient denies chest pain, shortness of breath, or palpitation. The patient is staying in sinus rhythm now. Echocardiogram was done on 08/02/2018, which showed normal sized LV, LV hypertrophy, ejection fraction 60-70%, trace mitral regurgitation, trace tricuspid regurgitation, trace aortic regurgitation, and the patient maintaining in sinus rhythm and he is going to go home on Cardizem CD 180 mg daily and Eliquis 5 b.i.d. Eliquis will be 5 b.i.d. only for 4 weeks, but he will continue Cardizem CD 180 mg daily, and the patient states that he will come as outpatient to do the stress test for completion of workup. In the meantime, he was advised also to lose weight and exercise, and we will continue to follow up closely. Sofia Irizarry MD
== END 2018-08-03 15:20 | disposition home or self-care (01) | DRG 310 ==
LOC: ED 22:07 → ERH 23:29 → 2RNO 08-01 16:15
PROVIDERS: ADMIT Internal Medicine Medical Oncology; ATTEND Internal Medicine Medical Oncology
DX: I48.91 Unspecified atrial fibrillation (principal); R07.9 Chest pain, unspecified; R42 Dizziness and giddiness; I10 Essential (primary) hypertension; E78.5 Hyperlipidemia, unspecified; E66.01 Morbid (severe) obesity due to excess calories; Z68.38 Body mass index [BMI] 38.0-38.9, adult; F12.90 Cannabis use, unspecified, uncomplicated; Z86.718 Personal history of other venous thrombosis and embolism; Z86.711 Personal history of pulmonary embolism; Z87.891 Personal history of nicotine dependence; Z82.3 Family history of stroke

== ENCOUNTER 2018-09-04 06:31 | Day surgery (SDC) | payer MEDICARE, OTHER ==
[2018-09-02 12:12] VITALS: BMI 38.6
[2018-09-04 07:31] VITALS: RESP 20
[2018-09-04 07:44] LABS: BASO # 0.03 K/mm3 (0.0-2.0); BASO % 0.3 % (0.0-3.0); EOS # 0.2 (0.0-0.7); EOS % 1.9 % (1.5-5.0); GRAN # 6.58 (1.4-6.5); GRAN % 64.8 % (50.0-68.0); HEMOGLOBIN 13.5 g/dL (14.0-18.0); LYMPH # 2.4 (1.2-3.4); LYMPH % 23.6 % (22.0-35.0); MEAN CELL VOLUME 86.4 fl (80.0-105.0); MEAN CORPUSCULAR HEMOGLOBIN 28.6 pg (25.0-35.0); MEAN CORPUSCULAR HGB CONC 33.1 g/dl (31.0-37.0); MEAN PLATELET VOLUME 10.2 fl (7.0-11.0); MONO % 9.4 % (1.0-6.0); RBC 4.72 10^6/uL (3.5-6.1); RED CELL DISTRIBUTION WIDTH 13.5 % (11.5-14.5); WHITE BLOOD COUNT 10.1 10^3/uL (4.5-11.0)
[2018-09-04 07:49] LABS: BLOOD UREA NITROGEN 17 mg/dL (7-21); GFR NON-AFRICAN AMERICAN > 60
[2018-09-04 07:50] LABS: HDL CHOLESTEROL 49 mg/dL (29-60)
[2018-09-04 07:52] LABS: INR 1.06; PARTIAL THROMBOPLASTIN TIME 28.7 Seconds (25.1-36.5); PROTHROMBIN TIME 12.2 SECONDS (9.4-12.5)
[2018-09-04 08:00] LABS: LDL CHOLESTEROL 86 mg/dL (0-129)
[2018-09-04] MEDS ORDERED: Lidocaine 2% Inj (20ml) ONE (08:07)
[2018-09-04] MEDS ORDERED: Verapamil 2 ML ONE (08:08)
[2018-09-04] MEDS ORDERED: Iodixanol 320 MG/ML 200 ML BOTTLE IV ONE (08:08)
[2018-09-04] MEDS ORDERED: Nitroglycerin 50mg in D5W 50 MG/250 ML BOTTLE IV ONE (08:08)
[2018-09-04] MEDS ORDERED: Phenylephrine 10 mg/ml Inj ONE (08:08)
[2018-09-04] MEDS ORDERED: Midazolam 2 MG/2 ML VIAL ONE (09:14)
--- NOTE | 2018-09-04 09:29 | HP ---
DATE OF EXAM: 09/01/2018 REASON FOR ADMISSION: Left heart cath possible angioplasty, abnormal stress test, new onset of atrial fibrillation. In summary, this is a 68-year-old male with past medical history significant for hypertension, hyperlipidemia, [place] who plays [place], after having a stressful situation at home and work, the patient came to the emergency room with Chest pain, found to be AFib. The patient started IV Cardizem and later on the patient was discharged on medication to follow up for a stress test. The patient had underwent a stress test, is abnormal, so the patient was scheduled for elective cardiac cath, possible angioplasty. PAST MEDICAL HISTORY: Significant for hypertension, obesity, hyperlipidemia, and atrial fibrillation. PAST SURGICAL HISTORY: Significant for left knee surgery in 2011, ligament was torn. FAMILY HISTORY: Noncontributory. SOCIAL HISTORY: Quit smoking many years ago. Denies any history of alcohol abuse, but says that he drinks 4 can of beer everyday or at least on Saturday when hangs with a friend. CURRENT MEDICATIONS: The patient is taking after being hospitalized for AFib on Cardizem CD 180 mg daily, Flomax 0.4 mg daily, lisinopril 10 mg daily, Ibuprofen 600 mg daily, hydrochlorothiazide 25 mg daily, atorvastatin 40 mg daily, and Eliquis 5 mg p.o. twice a day. ALLERGIES: NO KNOWN DRUG ALLERGIES. PREVIOUS CARDIAC WORKUP: As follows. The patient had an echocardiography done dated 08/02/2018 that revealed ejection fraction 65 to 70% with trace aortic regurgitation, trace mitral regurgitation, trace tricuspid regurgitation. The patient had a stress test dated 08/08/2018 that revealed probably abnormal myocardial perfusion study, ejection fraction 69%, reversible small size distal anteroseptal apical defect suspicious for ischemia. REVIEW OF SYSTEMS: As per HPI. PHYSICAL EXAMINATION VITAL SIGNS: Height of the patient is 6 feet 1 inches, weight of the patient is 290 pounds, body mass index 38 kg/m2. Temperature afebrile, heart rate 62, blood pressure 138/78. HEENT: PERRLA. Extraocular muscles intact. NECK: Supple. No carotid bruit or thyromegaly. CHEST: Clear to auscultation. HEART: S1 and S2 regular. ABDOMEN: Soft. EXTREMITIES: Clubbing and cyanosis negative. LABORATORY DATA: Blood workup as follows. WBC 7.5, hemoglobin 13.4, hematocrit 39.4, and platelet count 229. As of 08/02/2018 that is one month ago when the patient admitted at that time, the sodium 135, potassium 3.6, chloride 101, carbon dioxide 24, anion gap of 13, BUN 15, and creatinine 0.9. Troponin remains negative. TSH at that time was 1.93 and total cholesterol 165, LDL 103, HDL 44 and triglyceride is 105. Hemoglobin A1c was 7.3. IMPRESSION: A 68-year-old morbidly obese male with past medical history significant for hypertension, hyperlipidemia, arthritis, diabetes, admitted with a new onset of atrial fibrillation, converted to normal sinus. The patient underwent a stress test, is abnormal, so the patient is scheduled for elective cardiac cath possible angioplasty. Risks, benefits, and alternatives were explained to the patient, patient agreed, and we will proceed for cardiac catheterization. Further recommendations after the cardiac catheterization. We will follow with you. Thank you Dr. Lugo for providing us the opportunity in taking care of the patient, Maco Larsen. Sofia Mackey MD [place]
[2018-09-04] MEDS ORDERED: Bacitracin 500 Units/gm Oint Foilpak UD TOP ONE (10:06)
[2018-09-04] MEDS ORDERED: Sodium Chloride 0.9% 1,000 ML IV SCH (10:15)
[2018-09-04 10:20] VITALS: TEMP 97; O2SAT 97
--- NOTE | 2018-09-04 10:40 | CPOSTOP ---
DATE: 09/04/2018 PHYSICIAN: Dr. Sofia Mackey. [employer]: DARLING Garcia. TYPE OF ANESTHESIA: Moderate conscious sedation. Total 2 mg of Versed and 100 of fentanyl given periodically. Started 1 mg of Versed and 50 of fentanyl. PRE-PROCEDURE DIAGNOSIS: Unstable angina, paroxysmal atrial fibrillation, and abnormal stress test. PROCEDURE PERFORMED: Left heart catheterization. FINDINGS: Mild nonobstructive coronary artery disease. FINAL DIAGNOSIS: Nonobstructive coronary artery disease. POST PROCEDURE PATIENT CONDITION: Stable. VASCULAR ACCESS SITE: Left radial. CLOSURE DEVICE: TR band. TOTAL RADIATION DOSE: 6173.3 milligray unit. FLUORO TIME: 1.4 minute. Sofia Mackey MD
[2018-09-04] MEDS ORDERED: Bacitracin 500 Units/gm Oint Foilpak UD ONE (12:36)
[2018-09-04 13:29] VITALS: BP 112/68; PULSE 60
--- NOTE | 2018-09-04 15:17 | CARD ---
APPROVED REPORT Date of service: 09/04/2018 Procedure(s) performed: Left Heart Catheterization HISTORY The patient is a 68 year-old male with a history of : most recent EF: 69%. (EF Method: RADIONUCLIDE), peripheral vascular disease, tobacco history() : The patient is a former smoker , hypertension , dyslipidemia , Abnormal stress test francie-septal Hypokinesis, Hx of PAF ,converted to NSR.. INDICATION The indication(s) include : positive stress test, atrial fibrillation. CASE TECHNIQUE The patient was brought electively to the Cardiac Catheterization Laboratory in a fasting state and was prepped and draped in a sterile manner. The left wrist was infiltrated with 2% Lidocaine subcutaneous anesthesia. A 6FR GLIDESHEATH ACCESS KIT sheath was inserted into the left radial artery without difficulty. Coronary angiography was performed using coronary diagnostic catheters. The left coronary system was accessed and visualized with a Diagnostic ,5F JL 4 CATH DXT 100 CM catheter. The right coronary system was accessed and visualized with a Diagnostic ,5F JR 4 CATH DXT 100 CM catheter. The left ventricle was accessed and visualized with a 5F PIGTAIL 145 CATH DXT 110 CM catheter. Left ventricular/Aortic Valve gradient assessed on pullback. Left ventriculogram was performed in RALPH projection. Closure device was deployed with a Fr TR Band (Large) without any complications. The patient tolerated the procedure well and there were no complications associated with the procedure. Vessel Analysis The patient's coronary anatomy is right dominant. The left main coronary artery is a medium size vessel with diffuse calcification noted throughout this vessel and without significant stenosis. The left main bifurcates to the left anterior descending and circumflex. The left anterior descending artery is a medium size vessel with diffuse calcification noted throughout this vessel and without significant stenosis. There is a 55% stenosis in the very distal segment,near apex and is diffusely diseased ,but no focal stenosis.. The first diagonal branch is a medium size vessel with diffuse calcification noted throughout this vessel and without significant stenosis. The circumflex artery is a medium size vessel with diffuse calcification noted throughout this vessel and without significant stenosis. The first obtuse marginal branch is a medium size vessel with diffuse calcification noted throughout this vessel and without significant stenosis. There is a 30% stenosis in the distal segment. The second obtuse marginal branch is a small size vessel with diffuse calcification noted throughout this vessel and without significant stenosis. The right coronary artery is a large size vessel with diffuse calcification noted throughout this vessel and without significant stenosis. The right posterior descending artery is a medium size vessel with diffuse calcification noted throughout this vessel and without significant stenosis. The right posterolateral branch is a medium size vessel with diffuse calcification noted throughout this vessel and without significant stenosis. Left Ventricle The left ventricle is normal in size with normal contractility. There was no cardiomyopathy. The left ventricular ejection fraction is estimated to be 60-65%. The left ventricular end diastolic pressure is 15-18 mmHg. There was no gradient across the aortic valve upon pullback. Conclusion Non Obstructive CAD, limited to Distal LAD 55%, diffusely diseased but no Focal flow limiting stenosis. Preserved LV Fx, EF-60-65%, ED_15-18 mmof hg. Pt. convertd to NSR. Recommendations Aggressive Medical TherapyCardiac Risk Reduction Program Weight Loss Reduction Program Dc harrison, as pt is in NSR CC; Dr. Gusman / Edie.
--- NOTE | 2018-09-04 20:27 | CARD ---
APPROVED REPORT Date of service: 09/04/2018 EKG Measurement Heart [id number] <Conclusion> Sinus rhythm with 1st degree AV block Low voltage QRS Borderline ECG
== END 2018-09-04 13:00 | disposition home or self-care (01) ==
LOC: CATH 06:31
PROVIDERS: ATTEND Internal Medicine Cardiovascular Disease
DX: I25.110 Atherosclerotic heart disease of native coronary artery with unstable angina pectoris (principal); I10 Essential (primary) hypertension; E78.5 Hyperlipidemia, unspecified; E11.51 Type 2 diabetes mellitus with diabetic peripheral angiopathy without gangrene; E66.01 Morbid (severe) obesity due to excess calories; I48.0 Paroxysmal atrial fibrillation; Z79.01 Long term (current) use of anticoagulants; Z79.899 Other long term (current) drug therapy; Z87.891 Personal history of nicotine dependence; R94.39 Abnormal result of other cardiovascular function study; Z68.38 Body mass index [BMI] 38.0-38.9, adult
CPT/HCPCS: 36415; 80048; 80061; 85025; 85610; 85730; 86850; 86900; 93005; 93458; 99152; 99153; C1769; J1644 ×2; J2250; J3010; J7030; J7040; Q9966

== ENCOUNTER 2019-01-16 13:15 | Outpatient (CLI) | payer MEDICARE, OTHER | END 2019-01-16 13:16 | disposition home or self-care (01) | LOC: LAB 13:15 ==